=== PATIENT | female | born 1945 | race Caucasian/White ===

== ENCOUNTER → 2024-04-21 09:22 | Outpatient (REF) | payer MEDICARE, OTHER, SELFPAY | LOC: HWRAD 09:22 | PROVIDERS: ATTENDING PHYSICIAN Surgery Vascular Surgery; FAMILY PHYSICIAN Family Medicine | DX: I71.9 Aortic aneurysm of unspecified site, without rupture (principal) | CPT/HCPCS: 74176 ==

== ENCOUNTER → 2024-04-25 09:08 | Outpatient (REF) | payer MEDICARE, OTHER, SELFPAY | LOC: RAD 09:08 | PROVIDERS: ATTENDING PHYSICIAN Surgery Vascular Surgery; FAMILY PHYSICIAN Family Medicine | DX: I77.1 Stricture of artery (principal) | CPT/HCPCS: 93923; 93930 ==

== ENCOUNTER → 2024-04-29 09:30 | Outpatient (REF) | payer MEDICARE, OTHER, SELFPAY | LOC: HWRCS 09:30 | PROVIDERS: ATTENDING PHYSICIAN Internal Medicine Cardiovascular Disease; FAMILY PHYSICIAN Family Medicine | DX: I35.0 Nonrheumatic aortic (valve) stenosis (principal) | CPT/HCPCS: 93306 ==

== ENCOUNTER 2024-05-15 08:38 | Day surgery (SDC) | payer MEDICARE, OTHER, SELFPAY ==
[2024-05-06 09:17] VITALS: BMI 34.1
[2024-05-15] VITALS (10 sets, daily range): BP systolic 104–140; BP diastolic 63–76; BMI 33.5
--- NOTE | 2024-05-15 09:43 | CONSULT.STRU ---
Consultation
-
Date/Time Consultation Requested: 05/15/2024
Date/Time Consultation Performed: 05/15/2024
Requesting Provider: Nicolas Atkinson DO
Performing Provider: ROSALINO Vizcaino
Reason for Consultation: / TAVR
Patient History
Physicians
Family Physician: Rush Jacques MD
Outpatient Order Editor: Colette Lewis MD
Primary Order Editor: Colette Lewis MD
History of Present Illness
Ms. Worthington is a 78 yof that presents with severe symptomatic aortic stenosis associated with MCCLOUD, dizziness, and LE edema. Her echocardiogram from 04/29/2024 is notable for: EF 60-65% AV P/M 74/46, KAREN 0.86, Pk bob: 4.19, no AI, MAC with mild
Discussed the pathophysiology and treatment options for including SAVR and TAVR. Explained the TAVR evaluation process comprising of CT Scan, CT surgical consult, dental clearance, and a heart team discussion. TAVR booklet, prescriptions,
appointments, and contact information given to patient. Allowed for and answered questions at bedside.
Past Medical History
Past Medical History: Atrial Fib (PAF), HTN, Hypercholesterolemia, Valvular Disease (Aortic stenosis) and Other ((R) subclavian artery stenosis, chronic lower back pain, c-diff, BCC (R) arm, shingles, pneumonia, chronic bronchitis, cataracts,
vascular disease, colon polyps, UTI, migrains, OA, COVID, IBS)
Past Surgical History
Past Surgical History: Cholecystectomy, Orthopedic ((L)TKR, (R) Knee arthroscopy, (R) TKR) and Other ((R) and (L) lumpectomy, ablation , cataract removal)
Dental History
[facility] dental-Patient will make an appointment
Family History
Mother: at Age (90) and Cause of (CAD, CVA)
Father: at Age (80) and Cause of (CAD,CVA)
Family Medical History: Early CAD and CAD
Social History
Alcohol: Occasional
Drug: None
Tobacco: Former Smoker
Personal:
Living: With Spouse
Employment: Retired ([employer])
Allergies
Allergy/AdvReac Type Severity Reaction Status Date / Time
gabapentin Allergy Intermediate Swelling Verified 05/15/24 09:20
latex Allergy Mild Itching Verified 05/15/24 09:20
clam Allergy Severe Anaphylaxis Uncoded 05/15/24 09:20
Home Medications
�Medication �Instructions �Recorded �Confirmed �Type
rivaroxaban 20 mg tablet (Xarelto) 20 mg PO QPM 04/29/21 05/15/24 History
hydrochlorothiazide 25 mg tablet 25 mg PO DAILY 10/30/22 05/15/24 History
losartan 25 mg tablet 100 mg PO DAILY 10/30/22 05/15/24 History
methylcellulose (laxative) 500 mg 500 mg PO DAILY 10/30/22 05/15/24 History
tablet (Citrucel)
Probiotic Acidophilus 1 cap PO DAILY 05/15/24 05/15/24 History
acetaminophen 500 mg tablet 500 mg PO Q6H PRN pain 05/15/24 05/15/24 History
ascorbic acid (vitamin C) 500 mg 500 mg PO DAILY 05/15/24 05/15/24 History
tablet (Vitamin C)
calcium 600 mg (as carbonate)-vit 1 tab PO DAILY 05/15/24 05/15/24 History
D3 20 mcg (800 unit) chewable
tablet (Caltrate plus D)
calcium carbonate 600 mg PO DAILY 05/15/24 05/15/24 History
carboxymethylcellulose sodium 1 % 1 drp ophthalmic (eye) BID 05/15/24 05/15/24 History
eye liquid gel drops
cyanocobalamin (vitamin B-12) 1,000 mcg PO DAILY 05/15/24 05/15/24 History
1,000 mcg tablet,extended release
(Vitamin B-12 ER)
fluticasone propionate 50 2 spray intranasal DAILY 05/15/24 05/15/24 History
mcg/actuation nasal
spray,suspension
okhjugvq-gwkg-oknf 8 mg-folic 400 1 tab PO DAILY 05/15/24 05/15/24 History
mcg-K 50 mcg-lutein 300 mcg tablet
(Centrgeronimo Mahmood Women)
omega 5-luh-jgc-fish oil 1,200 mg 1 cap PO DAILY 05/15/24 05/15/24 History
(144 mg-216 mg) capsule (Fish Oil)
propranolol 10 mg tablet 10 mg PO Q6HPRN PRN afib 05/15/24 05/15/24 History
vitamin E 268 mg (400 unit) capsule 268 mg PO DAILY 05/15/24 05/15/24 History
STS%
STS %: 3.49
Review of Systems
-
History Source: Patient
General: Reports Fatigue
HEENT: Reports No Symptoms
Respiratory: Reports MCCLOUD
Cardiac: Reports Chest Pain (left anterior chest 'numbness')
Abdomen/GI: Reports No Symptoms
: Reports No Symptoms
Musculoskeletal: Reports No Symptoms
Skin: Reports No Symptoms
Neurological: Reports No Symptoms
Vascular: Reports PVD
Physical Exam
Vital Signs
Temp 97.9 F 05/15/24 08:43
Temp route: Oral 05/15/24 08:43
Pulse 84 05/15/24 08:43
Resp Rate 12 05/15/24 08:43
Blood pressure 140/76 05/15/24 08:43
Position: Lying 05/15/24 08:43
SaO2 97 05/15/24 08:43
Oxygen Mode of Delivery Room air 05/15/24 08:43
Can the patient verbally communicate their pain? Yes 05/15/24 08:43
Actual Weight 87.09 kg 05/15/24 09:30
Body Mass Index (BMI) 33.5 05/15/24 09:30
Labs
05/06/2024
HH: 13.8/40.2
plt: 268K
BUN/Cr: 18/0.8
GFR>60
Diagnostic Studies
ECHOCARDIOGRAM 04/29/2024:
CONCLUSIONS
Normal LV size and function with no regional wall motion abnormalities.
LVEF is 60-65% by visual estimation.
Asymmetric basal septal hypertrophy. Normal diastolic function.
Normal right ventricular size and function.
Severe aortic stenosis. Peak/mean gradients across the aortic valve are 74/46
mmHg.
CARDIAC CATHETERIZATION 05/15/2024:
CONCLUSIONS:
1. Right dominant circulation with a 70% lesion in the apical LAD, a 20% lesion in the mid RCA and luminal irregularities throughout the entire coronary tree.
2. Mildly elevated filling pressures (PCWP = 16 mmHg at 88.5 kg).
3. Preserved cardiac function (cardiac index = 2.45 L/min/m�).
4. Severe aortic valve stenosis by echocardiography.
5. Right subclavian artery stenosis, previously diagnosed by vascular surgery.
RECOMMENDATIONS:
1. Expectant management after cardiac catheterization via left radial approach.
2. Limited weight bearing on the left wrist for one week.
3. TAVR workup.
4. Aggressive primary prevention with modification of risk factors. The patient may benefit from high-dose, high potency statin but this is at the discretion of her primary outpatient senior operator
Procedure Type:�Isolated AVR
PERIOPERATIVE OUTCOME ESTIMATE %
Operative Mortality 3.49%
Morbidity & Mortality 7.21%
Stroke 0.718%
Renal Failure 1.79%
Reoperation 2.56%
Prolonged Ventilation 4.54%
Deep Sternal Wound Infection 0.108%
Long Hospital Stay (>14 days) 4.72%
Short Hospital Stay (<6 days)* 35.8%
Exam
General: Well Developed, Well Nourished, No Apparent Distress and Comfortable
HEENT: Normocephalic and Moist Mucous Membranes
Neck: Trachea Midline
Respiratory: Clear
Cardiac: Murmur (/ DIONE)
GI: Soft, Non Tender and Non Distended
Rectal: Deferred by Provider
Skin: Warm and Dry
Neuro: Awake, Alert, Oriented and AO x 3
Extremities: Lower Level Edema
Psych: Calm
Assessment / Plan
-
Aortic stenosis
Continue TAVR evaluation
Trend creatinine after contrast (Rx given)
TAVR CT scan (05/27)
CT surgery consult (TT 05/29)
Frailty testing and KCCQ12 at consult
Will hold xarelto x 48 before TAVR and add aspirin while xarelto held
Dental clearance
heart team discussion
Data Reviewed
-
Consumer Loan Specialist: Report Reviewed by me and Discussed with Physician
Echo: Report Reviewed by me and Discussed with Physician
Labs: Labs Reviewed by me
Old Records: Reviewed (Dr. Lewis's note)
Total Time Spent with Patient (in minutes): 45
[2024-05-15] MEDS: NSS 1000 IV (13:14)
--- NOTE | 2024-05-15 13:37 | ITS.CL.CATH ---
Patent Lawyer - Catheterization
Cardiac Catheterization
Procedure Report:
CARDIAC CATHETERIZATION REPORT
Date of Procedure: 05/15/2024
Referring: Riya Lewis M.D.
Indication: Severe aortic valve stenosis.
PROCEDURE:
1. Right heart catheterization.
2. Coronary angiography.
ACCESS:
6 Nigerien left radial artery.
5 Nigerien left antecubital vein.
CATHETERS:
1. 5 Nigerien balloon wedge.
2. 5 Nigerien JL 3.5.
3. 5 Nigerien JR4.
HEMODYNAMIC DATA
Weight (kg): 88.5
AO (s/d/x mmHg): 125/70/86
LV (s/x mmHg): Not obtained.
PCWP (a/v/x mmHg): /16
PA (s/d/x mmHg): /
RV (s/x mmHg): 26/
RA (a/v/x mmHg):
SVC SvO2 (%): 79.3
PA SvO2 (%): 75.1
SaO2 (%): 96.7
Hbg (g/dL): 12.7
CO (L/min): 4.69
CI (L/min/m2): 2.45
TPG (mmHg): 3
PVR (Chong Units): 0.64
SVR (dynes*seconds*cm^-5): 1348
AVO2 Diff (Volume %): 3.73
AV gradient (x, mmHg): Not obtained.
AV area (cm2): Not obtained.
LEFT VENTRICULOGRAPHY: Not performed.
CORONARY ANGIOGRAPHY
Dominance: Right.
Left Main: Normal size, bifurcating vessel. There is no coronary artery disease.
LAD: Normal size vessel giving rise to several small diagonals. There is a 70% lesion in the apical LAD. There are luminal irregularities in the body of the vessel.
Ramus: Congenitally absent.
Circumflex: Normal size, nondominant vessel that is essentially a single large obtuse marginal supplying the entire lateral wall. There are luminal irregularities.
RCA: Large size, dominant vessel. There are luminal irregularities and a discrete, 20% lesion in the mid RCA.
INTERVENTIONS
None.
Closure Device: Vascular band for the left radial artery, manual pressure for the left antecubital vein.
Radiation dose (mGy): 269.18
DAP (cm2.Gy): 19.7145
Fluoroscopy time (minutes): 2.3
Sedation time (minutes): 0
CONCLUSIONS:
1. Right dominant circulation with a 70% lesion in the apical LAD, a 20% lesion in the mid RCA and luminal irregularities throughout the entire coronary tree.
2. Mildly elevated filling pressures (PCWP = 16 mmHg at 88.5 kg).
3. Preserved cardiac function (cardiac index = 2.45 L/min/m�).
4. Severe aortic valve stenosis by echocardiography.
5. Right subclavian artery stenosis, previously diagnosed by vascular surgery.
RECOMMENDATIONS:
1. Expectant management after cardiac catheterization via left radial approach.
2. Limited weight bearing on the left wrist for one week.
3. TAVR workup.
4. Aggressive primary prevention with modification of risk factors. The patient may benefit from high-dose, high potency statin but this is at the discretion of her primary outpatient customer success manager.
Copy to: Riya Lewis M.D., Rush Jacques M.D.
Nicolas Atkinson, DO, FACC, FACP
== END 2024-05-15 15:10 | disposition home or self-care (01) ==
LOC: CATH 08:38
PROVIDERS: ATTENDING PHYSICIAN Internal Medicine Cardiovascular Disease; FAMILY PHYSICIAN Family Medicine; OTHER PHYSICIAN Internal Medicine Cardiovascular Disease
DX: R07.89 Other chest pain (principal); I35.0 Nonrheumatic aortic (valve) stenosis; I25.10 Atherosclerotic heart disease of native coronary artery without angina pectoris; R61 Generalized hyperhidrosis; R06.02 Shortness of breath; I48.0 Paroxysmal atrial fibrillation; R60.0 Localized edema; I10 Essential (primary) hypertension; R73.03 Prediabetes; G47.33 Obstructive sleep apnea (adult) (pediatric); R91.1 Solitary pulmonary nodule; Z85.820 Personal history of malignant melanoma of skin; M19.90 Unspecified osteoarthritis, unspecified site; G43.909 Migraine, unspecified, not intractable, without status migrainosus; M48.00 Spinal stenosis, site unspecified; Z79.01 Long term (current) use of anticoagulants; Z79.899 Other long term (current) drug therapy; E78.00 Pure hypercholesterolemia, unspecified; K58.9 Irritable bowel syndrome, unspecified; Z88.8 Allergy status to other drugs, medicaments and biological substances; Z86.0100 Personal history of colon polyps, unspecified; Z86.16 Personal history of COVID-19; Z82.49 Family history of ischemic heart disease and other diseases of the circulatory system; Z87.440 Personal history of urinary (tract) infections; Z87.891 Personal history of nicotine dependence; Z90.49 Acquired absence of other specified parts of digestive tract; Z91.040 Latex allergy status; Z96.653 Presence of artificial knee joint, bilateral
CPT/HCPCS: 93460; C1894; Q9967

== ENCOUNTER → 2024-05-30 09:29 | Outpatient (REF) | payer MEDICARE, OTHER, SELFPAY | LOC: RAD 09:29 | PROVIDERS: ATTENDING PHYSICIAN Nurse Practitioner Acute Care; FAMILY PHYSICIAN Family Medicine | DX: I35.0 Nonrheumatic aortic (valve) stenosis (principal) | CPT/HCPCS: 74174; 75572; Q9967 ==

== ENCOUNTER 2024-07-10 05:34 | Inpatient (IN) | payer MEDICARE, OTHER, SELFPAY ==
[2024-07-02 08:41] VITALS: BMI 34.5
[2024-07-02 09:36] LABS: % Basophils 0.6 % (0-2); % Eosinophils 1.7 % (0-6); % Immature Granulocytes 0.2 % (0-0.5); % Lymphocytes 25.4 % (20.5-51.1); % Monocytes 7.7 % (1.7-9.3); % Neutrophils 64.4 % (42.2-75.2); Absolute Eosinophils 0.1 10^3/uL (0-0.7); Absolute Lymphocytes 1.4 10^3/uL (1.2-3.4); Absolute Monocytes 0.4 10^3/uL (0.1-0.6); Absolute Neutrophils 3.5 10^3/uL (1.4-6.5); Hematocrit 41.4 % (37.0-47.0); Hemoglobin 14.3 g/dL (12.0-16.0); Mean Corp Hgb Conc. 34.5 g/dL (33.0-37.0); Mean Corpuscular Hgb 32.8 pg (27.0-31.0); Nucleated Red Blood Cells % 0 %; Platelet Count 253 10^3/uL (130-400); Red Blood Cell Count 4.36 10^6/uL (4.20-5.40); Red Cell Dist. Width 13.2 % (11.5-14.5); White Blood Cell Count 5.4 10^3/uL (4.8-10.8)
[2024-07-02 09:46] LABS: Urine Albumin Trace (Neg - Trace); Urine Bilirubin Negative (Negative); Urine Character Clear (Clear); Urine Color Yellow; Urine Glucose Negative (Negative); Urine Ketone Negative (Negative); Urine Leukocyte Negative (Negative); Urine Nitrite Negative (Negative); Urine Occult Blood Negative (Negative); Urine Specific Gravity 1.015 (<1.030); Urine Urobilinogen Negative (Neg - 1+)
[2024-07-02 09:56] LABS: INR 1.65; NT-proBNP 196 pg/ml
[2024-07-02 09:57] LABS: APTT 41.2 Sec (23.4-35.0)
[2024-07-02 10:20] LABS: Glycohemoglobin (HgbA1c) 5.3 % (4.0-5.6)
[2024-07-02 11:37] LABS: ALT (SGPT) 16 U/L (0-35); AST (SGOT) 20 U/L (14-36); Alkaline Phosphatase 70 U/L (38-126); Blood Urea Nitrogen 22 mg/dl (7-17); Calcium 8.6 mg/dl (8.4-10.2); Carbon Dioxide 30 mmol/L (22-30); Chloride 100 mmol/L (98-107); Direct Bilirubin 0.1 mg/dl (0.0-0.4); Estimated Creatinine Clearance 62 ml/min; Glucose 98 mg/dl (70-99); Potassium 3.6 mmol/L (3.5-5.1); Sodium 139 mmol/L (135-145); Total Bilirubin 0.6 mg/dl (0.2-1.3); Total Protein 6.4 g/dl (6.3-8.2); eGFR > 60.00
--- NOTE | 2024-07-02 12:03 | CM ---
spoke to pt and husb in PAT's, we discussed preop teaching for EVAR/TAVR, including lifting and driving restrictions, she is prev indep, is a nurse practicioner, lives with her husb in a 1 story home with 2 steps to enter. she has a cane she uses.
she has the TAVR educ book, soap and instuctions. she is agreeable to a f/u visit from the transitional care nurse after dc. plan is for EVAR/TAVR 07/10. cm role explained and all questions answered .
[2024-07-10] VITALS (17 sets, daily range): BP systolic 110–157; BP diastolic 55–99; BMI 33.3
--- NOTE | 2024-07-10 06:24 | W.CVOR.SURPR ---
CVOR Surgeon Immed Pre Op
-
I have examined this patient prior to performance of the scheduled procedure.
The patient's condition is unchanged from the time of the dictated/written History and
Physical and the patient is able to undergo the scheduled procedure.
TAVR + EVAR
Full Rescue
--- NOTE | 2024-07-10 06:30 | PTCARENOTE ---
pt admitted into 2263. pt confirmed 2 showers at home. NPO since 0000. pt clipped and prepped for EVAR/TAVR. pre-op education provided. 20 G PIV inserted. hooker on to laborer mine.
--- NOTE | 2024-07-10 07:04 | W.SUR.PREOP ---
Pre-Operative Surgical Note
-
I have examined this patient prior to the performance of the scheduled procedure.
The patient's condition is unchanged from the time of the current History and
Physical and the patient is able to undergo the scheduled procedure.
[2024-07-10 09:16] LABS: ACT-LR - POC 250 Seconds (116-155)
--- NOTE | 2024-07-10 09:20 | ITS.CL.TAVR ---
Gis Application Developer - TAVR Report
TAVR PRocedure
Procedure Report:
TRANSCATHETER AORTIC VALVE REPLACEMENT REPORT
Date of Procedure: 07/10/2024
Referring: Dr. Colette Lewis MD
Indication: Severe aortic stenosis, descending thoracic aorta saccular aneurysm
Operators: Jonathan Lam MD, PhD (interventional cardiology); Dr. Beny Todd MD (CT surgery); Dr. Pal Mendiola MD (vascular surgery)
Anesthesia: general anesthesia provided by the anesthesia staff
PROCEDURE:
1. transfemoral, transcatheter aortic valve replacement with a 23 mm Ortiz BENY S3 Ultra
2. descending thoracic aorta EVAR placement (by Vascular surgery, see separate note for details)
ACCESS:
1. 6F left femoral vein (closure: per Vascular surgery)
2. 7F left common femoral artery (closure: per Vascular surgery)
3. 14 F right common femoral artery (closure: per Vascular surgery)
ULTRASOUND GUIDED VASCULAR ACCESS (right common femoral artery): Ultrasound was utilized for vascular access. The vessel was visualized under ultrasound and noted to be patent. An image of the vessel was stored permanently in the patient's medical
record. Under direct ultrasound guidance, vascular access was obtained using a modified Seldinger technique and a 11 Taiwanese sheath was placed.
ULTRASOUND GUIDED VASCULAR ACCESS (left common femoral artery): Ultrasound was utilized for vascular access. The vessel was visualized under ultrasound and noted to be patent. An image of the vessel was stored permanently in the patient's medical
record. Under direct ultrasound guidance, vascular access was obtained using a modified Seldinger technique and a 7 Taiwanese sheath was placed.
ULTRASOUND GUIDED VASCULAR ACCESS (right common femoral vein): Ultrasound was utilized for vascular access. The vessel was visualized under ultrasound and noted to be patent. An image of the vessel was stored permanently in the patient's medical
record. Under direct ultrasound guidance, vascular access was obtained using a modified Seldinger technique and a 6 Taiwanese sheath was placed.
HEMODYNAMIC DATA
LV 24 mmHg
PROCEDURE NARRATIVE:
The procedure was performed in conjunction with vascular surgery (Dr. Pal Mendiola) with plan to complete a descending thoracic aorta EVAR using the existing TAVR access following the completion of the TAVR procedure.
The patient was prepped and draped in standard sterile fashion. General anesthesia was provided by the anesthesia staff. Vascular surgery obtained 7F left common femoral artery and 11F right common femoral artery access with placement of 2 Perclose
sutures. The procedure was then turned over to the TAVR team. 6F left common femoral vein access was obtained with ultrasound guidance. A temporary venous pacing wire was advanced via the left femoral vein to the right ventricle under fluoroscopic
guidance with appropriate capture verified. A 5F pigtail catheter was advanced via the left common femoral artery and seated in the right coronary cusp. Angiography was performed to verify the co-planar angle.
Using an AL1 catheter, an Amplatz Superstiff wire was placed in the descending thoracic aorta. The 11F sheath was removed and the 14F Ortiz E-sheath was inserted over the Superstiff wire and into the descending aorta. Heparin 6000 units was given.
The AL1 catheter was re-advanced through the E-sheath to the level of the ascending aorta. The Superstiff wire was exchanged for a soft tipped straight wire which was used to cross the aortic valve and deposit the AL1 in the LV apex. A J-wire was
used to exchange the AL1 for a pigtail catheter in the LV and LVEDP was measured. An Amplatz Extrastiff wire with curved proximal end was advanced through the pigtail catheter and seated in the LV apex. ACT was checked and confirmed to be >250
seconds.
The valve was brought to the table with orientation and deployment contrast volume verified. The valve was advanced over the Extrastiff wire and into the descending aorta. The balloon was withdrawn, and the valve was mounted on the balloon. The
valve was advanced over the aortic arch and into the aortic valve annulus. The pusher device was withdrawn. Low volume aortography confirmed valve positioning. The valve was deployed during rapid ventricular pacing. The balloon was walked back to
the descending aorta while leaving the wire in place. The patient was resuscitated by anesthesia with recovery of adequate blood pressure. Telemetry demonstrating sinus rhythm with new bundle branch block. Aortography demonstrated good valve
positioning, adequate coronary filling, and no aortic valve insufficiency. Echocardiography demonstrated possible trace paravalvular aortic insufficiency. Mean valve gradient was 4 mmHg. The valve deployment system was removed.
The pacemaker and the pigtail catheter were removed. The case was then turned back over to vascular surgery (Dr. Mendiola) who proceeded with descending thoracic aorta EVAR placement that was completed without complication. Please see separate vascular
surgery operative note for details.
RADIATION: dose to 46 mGy; DAP 37 Gy*cm2; fluoroscopy time 8.7 min
CONCLUSIONS
1. successful placement of a 23 mm Ortiz BENY S3 Ultra transcatheter aortic valve via right transfemoral approach with no acute complications
2. acute on chronic heart failure with elevated filling pressures (LVEDP = 24)
3. successful placement of descending thoracic arota EVAR (see Vascular Surgery note for further details)
Copy to: Dr. Colette Lewis MD (religion teacher); Dr. Rush Jacques MD (PCP)
Signed: Jonathan Lam MD, PhD
--- NOTE | 2024-07-10 09:21 | W.PN.CT.SURG ---
CT Surgery Operative Note
-
OPERATIVE REPORT
Preoperative Diagnosis: Severe aortic valve stenosis, symptomatic and a saccular abdominal aortic aneurysm with morphological changes
Postoperative Diagnosis: Same
Procedure(s) Performed: Right trans femoral TAVR with a 23 mm, nominal, Ortiz TAVR valve
Date of Procedure: 07/10/2024
Comorbidities:
1. Severe aortic stenosis, symptomatic
2. Saccular abdominal aortic aneurysm
3. History of C. difficile colitis
4. Hypertension
5. History of melanoma and BCC of the skin
6. Shingles
7. Peripheral vascular disease
8. Osteoarthritis
9. Irritable bowel syndrome
Cardiac Surgeon: Beny Todd MD, MS
Dragline Operator: Flash Lam MD
Vascular Surgeon: Pal Mendiola MD
Anesthesia: Conscious Sedation and Local Analgesia
EBL: 100cc
Products: none
Implant: 23 mm ORTIZ Robinson TAVR Valve, SN: [id number]
Indication(s) for Procedures: 78-year-old female with symptomatic severe aortic stenosis. CT-TAVR protocol revealed acceptable anatomy for TAVR access and implantation. As there were changes with evidence of growth of her saccular aneurysm on her
TAVR CT scan, multidisciplinary team discussion with vascular surgery who came to the consensus of moving forward with her TAVR procedure as well as placement of an EVAR graft at time of her TAVR implant. This be done under the same anesthesia
event and same access.
Start time: 0825hrs
Deployment time: 0907hrs
End time: ongoing for EVAR
Contrast volume (ml): 48 for the TAVR portion of the procedure
TAVR gradient (mmHg): 4mmHg
Heparin Dose: 6000units
Protamine Dose: 0
Final Valve Positionin/10
Findings: Preoperative LVEF was 60% and was 60% following TAVR without inotropic support. Function was overall normal without regional wall motion abnormalities or dyskinesia. The aortic valve was well seated only trace detectable PVL on
transesophageal echocardiography and mean gradient across the new valve was 4 mmHg. after deployment of the valve, the patient did progress into a bundle branch block but was hemodynamically stable, so the temporary pacing wire was removed. There
was successful placement of 23 mm, nominal, TAVR valve without acute complications. Please see Dr. Mendiola's dictation for the EVAR portion of the procedure.
Access:
1. Device -right common femoral artery, perclose x 2
2. Pigtail -left common femoral artery
3. Transvenous Pacer -left common femoral vein
Description of Procedure: The patient was taken to the pathology lab technician. Their identity and procedure to be performed were verified and they were positioned supine on the pathology lab technician table. Induction via general anesthesia with endotracheal intubation. The
patient was then prepped and draped from chin to thigh in a sterile fashion. A preoperative time-out was performed. Arterial and venous access was obtained by Dr. Mendiola. Two perclose devices were used on the device side followed by access to the aorta
with a stiff wire to faciltate E-sheath placement. Heparin was given. A stiff straight wire and AL-1 catheter was used to cross the aortic valve. LVEDP was then measured here and found to be 24 mmHg pre-TAVR deployment. The stiff wire was
exchanged for an extra stiff coiled tip wire. The valve was prepped and mounted on to the device carrier. An ACT of >250 was achieved. We verified x 3 that the valve was mounted in the correct orientation with the skirt of the valve directed toward
the tip of the device carrier. We advanced the device into the descending thoracic aorta where the valve was them mounted onto the balloon under fluoroscopy. The device was flexed and advanced over the arch into the root and positioned across the
aortic valve. Contrast fluoroscopy was used to visualize the prosthesis across the valve and to guide positioning. A pigtail catheter in the RCC as used as a guide. We aimed to have the bottom of the device marker at the annular hinge point. The
device sheath was pulled back. We performed a quick pre-deployment time out. The pacer was turned on and had capture. Blood pressure fell accordingly and the valve was deployed with 5 seconds of rapid pacing to nominal volume. The balloon was
deflated and the pacer was turned off. We had recovery of vitals. The device carrier was unflexed and positioned back in the descending thoracic aorta. A transesophageal echocardiogram was performed. The pigtail was then removed as well as the
temporary pacing wire. At this point, the structural heart team vacated and we turned over the procedure to vascular surgery. Please see their dictation for the remainder of the procedure.
I, Dr. Beny Todd, was present, scrubbed for, and performed all critical elements of this procedure for the TAVR portion.
Beny Todd MD
Cardiothoracic Surgeon
[facility]
This operative dictation was created using the [employer] dictation system. Please excuse any grammatical, typographical, or 'sound alike' errors
--- NOTE | 2024-07-10 10:29 | W.SUR.POST ---
Surgical Immediate Post Op
Note
Pre Op Diagnosis: AAA
Post Op Diagnosis: Same
Procedure Performed: Bilateral groin cutdown, EVAR
Primary Surgeon: Maury
Assist: Thomas JERRY
Anesthesia: General
Estimated Blood Loss: 10 cc
Fluids: See anesthesia flowsheet
Drains/Shunts: None
Specimens/Cultures: None
Doppler/Duplex/Angio (Y/N): Y
Complications: None
Operative Findings: See separately dictated notes for TAVR
--- NOTE | 2024-07-10 10:31 | OR.RPT ---
Operative Report
Operative Report
PROCEDURE DATE: 07/10/2024
Preoperative diagnosis: Enlarging saccular abdominal aortic aneurysm, prior thrombosis now with active perfusion into sac.
Postoperative diagnosis: Same
Procedure:
1. Endovascular repair of abdominal aortic aneurysm with aortobiiliac endograft (Endologix AFX-2 [id number]/I16-30 bifurcated device).
2. Percutaneous right common femoral artery closure with preclose technique.
3. Pro-glide percutaneous suture closure left common femoral artery puncture site.
4. Supervision and interpretation.
Surgeon: Maury
Supervisor [employer]: JORGE Guzman, required for all aspects of procedure including assistance with contralateral wire snare, traction/countertraction, assistance with closure.
Complications: None
Anesthesia: General
Fluoroscopy:
Time 10.8 minutes
Dose 16.7 mGy
DAP 72.03
Indications for procedure:
Abdominal aortic aneurysm with saccular morphology. Prior the saccular outpouching (likely plaque rupture related) had been thrombosed. On recent scan imaging it had now slightly enlarged but more concerning was newly perfused/pressurized. Raise
concern for eventual enlargement and rupture risk. Patient also had aortic valvular disease. Extensive discussions were undertaken, and we had settled on concomitant TAVR and endovascular aneurysm repair (EVAR) and single setting as the safest
mode of treatment for the patient. Risk/benefits/alternatives of endovascular aneurysm repair were fully discussed. Patient understood and wished to proceed.
Description of procedure:
Patient was identified brought to the operating room placed on the table in supine position. After the adequate administration of anesthesia and perioperative antibiotics she was prepped and draped in the standard surgical fashion. A standard
preoperative timeout was undertaken and everybody was in agreement the plan. Bilateral common femoral artery access was obtained under direct duplex ultrasound guidance. 6 Armenian sheath was placed over 0.035 inch wire in the right groin. In the
left groin, 7 Armenian sheath was placed. A small 1 cm incision was made around the right sided sheath access, and blunt dissection was undertaken with hemostats to facilitate percutaneous suture delivery. Next, using the ProGlide suture system,
percutaneous sutures were deployed at the 10:00 and 2 o'clock position on the right side in the standard fashion. Suture strands were tagged outside the skin. I exchanged for a short 11 Armenian sheath in that right groin access over the wire.
I now turned the case over to the TAVR team and they performed their portion of the procedure (see separately dictated operative notes).
When they were completed, I returned to the operating room. At this point there was the large TAVR sheath in the right groin which was a 14 Armenian sheath upsized to an 18 (sheath dilates). I now exchanged to the Amplatz wire (Amplatz extra-stiff)
for a Lunderquist wire that was positioned in the descending thoracic aorta. I now walked off the TAVR sheath and exchanged for the Endologix AFX sheath.
I now loaded the [id number] bifurcated Endologix AFX graft ([id number])] onto the stiff wire (right sided access) and then advance the affixed contralateral wire through the AFX introducer sheath. The contralateral wire was snared through
the left sided access and brought out through the contralateral left side. Initially had slight difficulty standing the wire, but then was able to successfully do so. The AFX 2 bifurcated device was transferred into the AFX introducer sheath and
advanced under fluoroscopy until the distal limbs were above the aortic bifurcation thereby releasing the limbs of the graft. Confirmation was again performed noting evidence of mild wire wrap. This was easily corrected. Next, with concomitant
downward tension on the left sided through and through wire and the right sided main body, the bifurcated graft was seated on the aortic bifurcation. Once confirmed that the graft was seated on the bifurcation, I then pulled the rip cord to deploy
the main body of the endograft. The yellow covering was then pulled over the left wire (contralateral wire) thereby deploying the contralateral iliac limb. Once this was done, a pigtail catheter was advanced over the left sided contralateral wire
access and forward pressure was applied while pulling the wire back to release the wire lock. The pigtail catheter was then advanced into the juxtarenal aorta.
Next the ipsilateral iliac limb deployment was completed by pinning the inner core and retracting the introducer sheath. Now, the inner core delivery device was withdrawn from the sheath. Coda balloon was then inserted and proximal seal zone and
right iliac limb seal were balloon molded. Completion angiography now demonstrated excellent positioning of the endograft with good filling of both renal arteries (endograft had been positioned and sized such that there was a long infrarenal neck
given that this was a saccular morphology of the aneurysm), good apposition of the proximal and distal seals, good filling of both internal and external iliac arteries. No filling of the aneurysm sac was noted. No endoleak was noted. On delayed
imaging, the JENNY could be seen to fill, but no retrograde filling into the aneurysm sac was noted. At this point I was very satisfied.
Next, I removed the right sided 17 Armenian sheath while cinching down the percutaneous sutures. Once hemostasis was noted the wire was then withdrawn, the knot was tightened with a knot pusher. Hemostasis was fully noted. The knot was then locked
and the suture strands trimmed. Manual pressure was also applied, and then full hemostasis was noted. On the left side, I exchanged the 7 Armenian sheath over a Storq wire for a Pro-glide percutaneous suture delivery device. Pro-glide percutaneous
suture was not was then cinched down to the artery. Knot was pushed down with a knot pusher. The knot was locked. Hemostasis was fully achieved bilateral groins with good femoral and distal DP pulses bilaterally. Protamine was given to reverse
the heparin. The small right groin skin incisions was then closed with 4-0 Monocryl subcuticular stitch and Dermabond was applied. Dressing applied to left groin puncture site. In addition, the left common femoral venous sheath placed by the
cardiology team was removed and manual pressure applied to that site and hemostasis fully achieved. Dressings were applied to that side as well. Patient tolerated procedure well.
[2024-07-10] MEDS: ANCEF 10 IV ×2 (10:50)
[2024-07-10] MEDS: THERAGRAN PO (10:51)
--- NOTE | 2024-07-10 11:05 | PTCARENOTE ---
Received pt from the [facility] into 2263, sinus rhythm on tele w HR 70's, Left radial vivian leveled and zeroed. BP 152/57, + doppler pulses, trace edema. Pt is oriented x3, PIMENTEL to commands. Lungs diminished, pox 99% on 4L NC. Hypoactive BS, NPO maintained
for 4 hrs post procedure. Xiao catheter draining yellow. Right groin w surgical glue intact, left groin w dressing C/D/I. PIV flush easily. Pt denies CP, JURADO or SOB. Plan of care reviewed and questions encouraged.
DRIPS: Cardene 5mg/hr
--- NOTE | 2024-07-10 11:22 | CON.INTV ---
Consultation
Consultation Request
Date/Time Consultation Requested: 07/10
Date/Time Consultation Performed: 07/10
Reason for Consultation: Critical care
Medical History
-
History of Present Illness:
History obtained from patient but primarily obtained from medical records. Patient waking up from anesthesia. Presently she is comfortable without complaints of shortness of breath, nausea, abdominal pain. 78-year-old female with progressive
aortic valve stenosis with recent echocardiogram peak gradient 70, valve area of 0.7 cm�. Catheterization revealed 70% lesion, normal cardiac index, normal right sided pressures. Preprocedure scanning also revealed saccular abdominal aortic
aneurysm which is being followed by vascular surgery. Patient is now status post TAVR/EVAR
.
PMH: Hypertension, hyperlipidemia, history of atrial fibrillation, history of C. difficile colitis, skin cancer including basal cell, melanoma. History of colon polyps, nephrolithiasis, IBS. History of sleep apnea, left upper lobe nodule.
History of subclavian stenosis. History of COVID 2021. History of cholecystectomy, multiple skin cancer removals including melanoma of the right [place], left knee replacement 2018, bilateral lumpectomy breast, history of ablation
Past Medical History
Past Medical History: None (See above)
Past Surgical History: None (See above)
Social History
Tobacco: Former Smoker (Less than 10 pack years, quit )
Alcohol: Occasional
Drug: None
Personal:
Living: With Family
Employment: Not Employed
Family History
Family History: Other (Family history of cortices, stroke. History of brain aneurysm, breast cancer)
Allergies / Home Medications
Allergies
Allergy/AdvReac Type Severity Reaction Status Date / Time
gabapentin Allergy Intermediate Swelling Verified 07/01/24 08:28
latex Allergy Mild Itching Verified 07/01/24 08:28
clam Allergy Severe Anaphylaxis Uncoded 07/01/24 08:28
Home Medications
�Medication �Instructions �Recorded �Confirmed �Last Taken �Type
rivaroxaban 20 mg tablet (Xarelto) 20 mg PO QPM 04/29/21 07/10/24 07/07/24 History
hydrochlorothiazide 25 mg tablet 25 mg PO DAILY 10/30/22 07/10/24 07/09/24 History
methylcellulose (laxative) 500 mg 500 mg PO DAILY 10/30/22 07/10/24 07/09/24 History
tablet (Citrucel)
Probiotic Acidophilus 1 cap PO DAILY 05/15/24 07/10/24 07/09/24 History
acetaminophen 500 mg tablet 500 mg PO Q6H PRN pain 05/15/24 07/10/24 06/26/24 History
ascorbic acid (vitamin C) 500 mg 500 mg PO DAILY 05/15/24 07/10/24 07/09/24 History
tablet (Vitamin C)
calcium 600 mg (as carbonate)-vit 1 tab PO DAILY 05/15/24 07/10/24 07/09/24 History
D3 20 mcg (800 unit) chewable
tablet (Caltrate plus D)
calcium carbonate 600 mg PO PRN PRN Indigestion 05/15/24 07/10/24 06/26/24 History
carboxymethylcellulose sodium 1 % 1 drp ophthalmic (eye) BID 05/15/24 07/10/24 07/09/24 History
eye liquid gel drops
cyanocobalamin (vitamin B-12) 1,000 mcg PO DAILY 05/15/24 07/10/24 07/09/24 History
1,000 mcg tablet,extended release
(Vitamin B-12 ER)
fluticasone propionate 50 2 spray intranasal DAILY 05/15/24 07/10/24 07/09/24 History
mcg/actuation nasal
spray,suspension
tqmqssyn-bpim-wbhr 8 mg-folic 400 1 tab PO DAILY 05/15/24 07/10/24 07/09/24 History
mcg-K 50 mcg-lutein 300 mcg tablet
(Centrum Silver Women)
omega 0-vkz-olb-fish oil 1,200 mg 1 cap PO DAILY 05/15/24 07/10/24 06/30/24 History
(144 mg-216 mg) capsule (Fish Oil)
propranolol 10 mg tablet 10 mg PO Q6HPRN PRN afib 05/15/24 07/10/24 07/03/24 History
vitamin E 268 mg (400 unit) capsule 268 mg PO DAILY 05/15/24 07/10/24 06/30/24 History
losartan 100 mg tablet 100 mg PO DAILY 07/01/24 07/10/24 07/09/24 History
aspirin 81 mg chewable tablet 81 mg PO DAILY 07/10/24 07/10/24 07/10/24 History
Review of Systems
-
Unable to Obtain full review of systems at this time due to: Acuity
Vitals / Labs / Diagnostic Testing
Vital Signs
Temp Pulse Resp BP Pulse Ox
95.1 F L 72 14 118/55 98
07/10/24 11:07/10/24 11:07/10/24 11:00 07/10/24 11:07/10/24 11:00
Diagnostic Testing:
Physical Exam
-
HEENT: Normocephalic, Anicteric and Other
Cardiovascular: S1/S2, Regular Rhythm, Murmur (n), Rub (n) and Peripheral Edema (n)
Respiratory: Wheeze (n), Rales (n), Rhonchi (n) and Non-Labored Respirations
GI: Soft, Non Distended and Non Tender
Neurology: Awake, Alert and No Motor Deficits (Moves all extremities)
Skin: Good Color
General: Comfortable
Assessment
-
78-year-old female with history of progressive aortic stenosis, status post TAVR/EVAR 07/10/24
S/p TAVR, repair of abdominal aortic aneurysm with aortobiiliac endograft
Hypokalemia
Hyperglycemia
Conditions present prior to admission
History of C. difficile colitis
Left upper lobe nodule, 8 mm, stable from -
Hypertension/hyperlipidemia
Paroxysmal atrial fibrillation
History of coronary disease, per [facility] 05/15/2024
70% apical LAD, 20% mid RCA
RT Subclavian arterial stenosis
BLADIMIR, total index 18.5, desaturation marianna 86%
History of multiple skin cancers including melanoma
History of nephrolithiasis
Plan/recommendations
At this time, patient remain critical but stable
Patient is without complaints at this time
98% saturation, pulse 86, blood pressure 120s/60s
Moving forward
Continue management per CT surgery and vascular surgery.
Resume oral antihypertensive therapy
Patient on Xarelto, to be started 07/11
Monitor blood pressure, nicardipine as needed
Blood pressure monitoring from left arm given right subclavian stenosis
Pain control
Patient with history of moderate sleep apnea
Head of bed elevated
Will clarify CPAP treatment as outpatient if follows up
Left upper lobe nodule noted. It appears to be spiculated but has not changed significantly from 20 22-20 24, measured 8 mm
However there is a groundglass component therefore I would recommend continued follow-up imaging, consider repeat CT chest in 6 to 12 months
Reviewed with critical care nursing
TCCT 31 min
--- NOTE | 2024-07-10 12:04 | CM ---
Chart reviewed. Patient is in the OR today. Patient is a retired [employer]. Patient is independent of ADLS, lives with her in a [address], 2 [address], ambulates with a SPC. Plan is for the patient to return home with CT Transitional RN. CM to follow
[2024-07-10 12:13] LABS: Hematocrit 37.3 % (37.0-47.0); Mean Corp Hgb Conc. 34.9 g/dL (33.0-37.0); Mean Corpuscular Hgb 32.7 pg (27.0-31.0); Mean Corpuscular Volume 93.7 fL (81.0-99.0); Mean Platelet Volume 8.9 fL (7.4-10.4); Platelet Count 223 10^3/uL (130-400); Red Blood Cell Count 3.98 10^6/uL (4.20-5.40); Red Cell Dist. Width 13.1 % (11.5-14.5); White Blood Cell Count 8.4 10^3/uL (4.8-10.8)
[2024-07-10] MEDS: NSS 1000 IV (12:19)
[2024-07-10 12:23] LABS: PT 14.7 Sec (11.4-14.6)
[2024-07-10 12:24] LABS: APTT 33.5 Sec (23.4-35.0)
[2024-07-10 12:52] LABS: Blood Urea Nitrogen 13 mg/dl (7-17); Calcium 7.7 mg/dl (8.4-10.2); Carbon Dioxide 27 mmol/L (22-30); Chloride 104 mmol/L (98-107); Estimated Creatinine Clearance 84 ml/min; Glucose 134 mg/dl (70-99); Potassium 3.3 mmol/L (3.5-5.1); Sodium 139 mmol/L (135-145); eGFR > 60.00
[2024-07-10] MEDS: KCL 40 MEQ PO (13:39)
[2024-07-10 14:23] LABS: ACT-LR - POC > 397 Seconds (116-155)
--- NOTE | 2024-07-10 15:00 | PTCARENOTE ---
Pt received from previous RN; NSR on monitor and vSS; B/L groin dressing intact; family at bedside and assessment unchanged.
[2024-07-10] MEDS: ANCEF 5 IV (16:35)
[2024-07-10] MEDS: REFRESH CELLUVISC GEL BOTH EYES (20:23)
[2024-07-10] MEDS: BENADRYL 25 MG PO (20:24)
--- NOTE | 2024-07-10 22:35 | PTCARENOTE ---
Received patient at 1900. Patient in bed, at bedside, AOx3, no acute complaints of pain. NSR on the monitor, hear tones audible, trace lower extremity edema, + pulses. Lungs diminished at the bases, on 4LNC. Tolerated dinner, no n/v, +BS.
Xiao catheter in place draining clear yellow urine. B/L groin sites intact, skin otherwise CDI, see worklist. PIVx3 and L vivian in place. Lines leveled and zeroed. Call kwan within reach, patient and spouse updated on plan of care, in agreement.
Assessment of needs ongoing.
[2024-07-11] VITALS (12 sets, daily range): BP systolic 129–142; BP diastolic 60–75; PULSE 90; O2SAT 98–99; BMI 33.7
--- NOTE | 2024-07-11 00:11 | PTCARENOTE ---
Notified provider the patient had 15 mL OUP between 2200 and 2300. Patient on maintenance IVF, advised to continue to monitor. Patient sleeping between care, no acute issues, groin sites stable, neurologically intact.
--- NOTE | 2024-07-11 04:00 | PTCARENOTE ---
No changes in assessment, VSS, patient sleeping between care.
--- NOTE | 2024-07-11 04:29 | W.PN.CT ---
Today's Communication / Plan
-
-POD#1
-no issues overnight
-Echo today
-review EKG with cardiology
-start Xarelto along with prior home meds
-discharge planning
Assessment / Plan
-
s/p Right trans femoral TAVR with a 23 mm, nominal, Ortiz TAVR valve by Dr. Todd and Bilateral groin cutdown, EVAR with aortobiiliac endograft (Endologix AFX-2 [id number]/I16-30 bifurcated device) by Dr. Mendiola POD#1.
-Severe aortic stenosis, symptomatic
-Saccular abdominal aortic aneurysm
-History of C. difficile colitis
-Hypertension
-History of melanoma and BCC of the skin
-Shingles
-Peripheral vascular disease
-Osteoarthritis
-Irritable bowel syndrome
Subjective
Procedure
-Right trans femoral TAVR with a 23 mm, nominal, Ortiz TAVR valve on 07/10/[address] Todd
-Bilateral groin cutdown, EVAR with aortobiiliac endograft (Endologix AFX-2 [id number]/I16-30 bifurcated device) on 07/10/[address] Mendiola
-
Date of Service: July 11, 2024
Objective Data
-
Lab Results
07/11/24 04:20
07/11/24 04:20
PT 14.6 Sec (11.4-14.6) 07/11/24 04:20
INR 1.08 07/11/24 04:20
APTT 32.3 Sec (23.4-35.0) 07/11/24 04:20
Vital Signs
Vital Signs
Temp Pulse Resp BP Pulse Ox
98.4 F 77 12 135/61 98
07/11/24 04:00 07/11/24 04:00 07/11/24 04:00 07/11/24 04:00 07/11/24 04:00
CT Intake/Output/Weight
07/10/24 07/10/24 07/11/24
06:59 18:59 06:59
Intake Total 247.5 / 1627.5 1380 / 1627.5
Output Total 3100 / 3550 450 / 3550
Balance -2852.5 / -1922.5 930 / -1922.5
SaO2: 98
Physical Exam
-
General: AOx3
Cardiovascular: Regular rate & rhythm
Respiratory: Clear
Incision: Other (groins dressed/dry without hematoma)
[2024-07-11 04:49] LABS: Hematocrit 32.6 % (37.0-47.0); Hemoglobin 11.1 g/dL (12.0-16.0); Mean Corpuscular Hgb 32.5 pg (27.0-31.0); Mean Corpuscular Volume 95.3 fL (81.0-99.0); Mean Platelet Volume 9.1 fL (7.4-10.4); Platelet Count 215 10^3/uL (130-400); Red Blood Cell Count 3.42 10^6/uL (4.20-5.40); Red Cell Dist. Width 13.2 % (11.5-14.5); White Blood Cell Count 11.9 10^3/uL (4.8-10.8)
[2024-07-11 04:56] LABS: INR 1.08; PT 14.6 Sec (11.4-14.6)
[2024-07-11 04:57] LABS: APTT 32.3 Sec (23.4-35.0)
[2024-07-11 05:14] LABS: Blood Urea Nitrogen 11 mg/dl (7-17); Calcium 7.9 mg/dl (8.4-10.2); Carbon Dioxide 25 mmol/L (22-30); Chloride 108 mmol/L (98-107); Estimated Creatinine Clearance 84 ml/min; Glucose 118 mg/dl (70-99); Potassium 3.7 mmol/L (3.5-5.1); Sodium 139 mmol/L (135-145); eGFR > 60.00
[2024-07-11] MEDS: KCL 40 MEQ PO (05:58)
--- NOTE | 2024-07-11 06:45 | PTCARENOTE ---
Patient delined, OOB to chair, no issues.
--- NOTE | 2024-07-11 07:45 | PTCARENOTE ---
Received pt from night court magistrate RN; pt AAOx3 and resting comfortably in chair; NSR on monitor and VSS; Lungs diminished; positive bowel sounds; pt voiding yellow urine; palpable pulses throughout; no edema noted; all surgical sites C/D/I; see flow
sheet for details.
--- NOTE | 2024-07-11 07:46 | W.PN.VS ---
Addendum entered and electronically signed by Pal Mendiola MD 07/11/24 08:26:
Seen and examined with JORGE Guzman. Agree with findings as noted below. Patient without significant complaints. Sitting up eating when we saw her without any discomfort. Abdomen is soft, nondistended, nontender. Groins are both flat. Small right
groin incision clean dry and intact. No hematoma. Left groin puncture site flat. No hematoma. Feet are warm with palpable DP pulses bilaterally. Labs reviewed. Plan/as discussed and noted below.
Original Note:
Today's Communication / Plan
-
Patient seen and evaluated bedside with Dr. Pal Mendiola, below plan reviewed with attending.
Assessment/Plan
-
Assessment: 78-year-old female POD #1 TAVR/EVAR
Plan:
Discontinue Xiao catheter
Continue to progress ambulation as tolerated
Continue aspirin 81 mg p.o. daily, okay from a vascular surgical perspective to reinitiate anticoagulation for atrial fibrillation
Outpatient follow-up placed in discharge instructions
From a vascular surgical perspective okay for discharge today pending spontaneous void following Xiao catheter removal and continued toleration of ambulation
Subjective Data
-
Date of Service: July 11, 2024
Patient seen and examined at chair side, offers no complaints, tolerating p.o. diet and currently eating breakfast. Reports very minimal pain at bilateral puncture sites. Denies nausea, vomiting, fever, and chills.
Objective Data
-
Vital Signs
Temp Pulse Resp BP Pulse Ox
98.4 F 73 18 142/70 98
07/11/24 06:00 07/11/24 06:29 07/11/24 06:29 07/11/24 06:29 07/11/24 06:29
Intake and Output
07/10/24 07/11/24 07/12/24
06:59 06:59 06:59
Intake Total 1847.5 / 1847.5
Output Total 3785 / 3785
Balance -1937.5 / -1937.5
Intake:
Oral fluids 600 / 600
IV fluids (Total) 1247.5 / 1247.5
Cardene 17.5 / 17.5
KVO 170 / 170
NSS 1060 / 1060
Output:
Urine, Xiao 378 / 3785
Lab Results
07/11/24 04:20
07/11/24 04:20
Calcium 7.9 mg/dl (8.4-10.2) L 07/11/24 04:20
Total Bilirubin 0.6 mg/dl (0.2-1.3) 07/02/24 08:53
Direct Bilirubin 0.1 mg/dl (0.0-0.4) 07/02/24 08:53
AST 20 U/L (14-36) 07/02/24 08:53
ALT 16 U/L (0-35) 07/02/24 08:53
Alkaline Phosphatase 70 U/L (38-126) 07/02/24 08:53
Total Protein 6.4 g/dl (6.3-8.2) 07/02/24 08:53
Albumin 4.0 g/dl (3.5-5.0) 07/02/24 08:53
Physical Exam
-
No apparent distress, resting in chair comfortably
No tachycardia
No dyspnea on room air
ABD rotund, nondistended, nontender
Bilateral groin puncture sites clean, dry, and intact. No evidence of hematoma.
Bilateral feet warm, bilateral DP pulse +2 palpable
Xiao draining clear yellow urine
[2024-07-11] MEDS: VITAMIN C 500 MG PO (07:49)
[2024-07-11] MEDS: REFRESH CELLUVISC GEL 1 DROPS BOTH EYES (07:49)
[2024-07-11] MEDS: VISBIOME 1 CAP PO (07:49)
[2024-07-11] MEDS: ORETIC 25 MG PO (07:49)
[2024-07-11] MEDS: COZAAR 100 MG PO (07:49)
[2024-07-11] MEDS: THERAGRAN 1 TABLET PO (07:49)
[2024-07-11] MEDS: OSCAL 500 + D 500 MG PO (07:49)
[2024-07-11] MEDS: LOW STRENGTH ASPIRIN 81 MG PO (08:49)
[2024-07-11] MEDS: LASIX 40 MG IV (08:49)
--- NOTE | 2024-07-11 09:11 | W.DCSUMMARY ---
Discharge Summary
Discharge Data
Date of Admission: 07/10/24
Date of Discharge: 07/11/24
Total time spent discharging patient (in min): 40
-
Pending Results: No
Hospital Course
Primary care physician:
Dr. Jacques
Outpatient photonics engineer:
Dr. Lewis
Inpatient consultants:
Vascular, [facility] cardiology, and hand box coverer
Procedures:
1. Right trans femoral TAVR with a 23 mm, nominal, Ortiz TAVR valve
2. Endovascular repair of abdominal aortic aneurysm with aortobiiliac endograft (Endologix AFX-2 [id number] bifurcated device).
Primary Diagnosis:
1. Severe aortic valve stenosis
Secondary Diagnoses:
1. Enlarging saccular abdominal aortic aneurysm, prior thrombosis now with active perfusion into sac.
2. History of C. difficile colitis
3. transient bundle branch block (resolved)
4. Hypertension
5. History of melanoma and BCC of the skin
6. Shingles
7. Peripheral vascular disease
8. Osteoarthritis
9. Irritable bowel syndrome
HPI: 78-year-old female with symptomatic severe aortic stenosis. CT-TAVR protocol revealed acceptable anatomy for TAVR access and implantation. As there were changes with evidence of growth of her saccular aneurysm on her TAVR CT scan,
multidisciplinary team discussion with vascular surgery who came to the consensus of moving forward with her TAVR procedure as well as placement of an EVAR graft at time of her TAVR implant. Therefore, she presented on 07/10 for her planned
procedure.
Hospital course: Patient did well post-procedure and returned to the CVICU for the remainder of her recovery. She was started on IVF per vascular and had excellent UOP and arterial line was DC. On 07/11 POD #1, her william was removed. She was resumed
on ASA 81mg daily per vascular. B/L groins remained stable. TTE showed P/M gradients were 19/12mmHg and LVEF was >75%. She was deemed stable for discharge and to resume her xarelto tonight.
Home medication changes:
see below
Discharge Plan
-
Patient Disposition: Home (Routine Discharge)
Discharge Diagnosis/Procedures: TF-TAVR/EVAR
Condition: Good
Diet: Low Cholesterol and 2 Gram Sodium
Activity: As tolerated
Driving Restrictions: No driving for 1 week
Bathing Restrictions: OK to Shower
Others Tests: 30 Day Follow Up Echocardiogram: 08/11/2024 11:20am at [facility]
Other Services: Cardiac Rehab
Wound Care: Please do not apply lotions, creams or powders to groin areas. Monitor for increased pain, swelling, drainage or redness. Call your doctor if any occur.
Specialty Instructions: Weigh Daily- Call MD for wt gain/loss 3 lbs overnight/5 lbs in 1 week
Stand Alone Forms: DC Inst - TransFemoral (TAVR), DC Instr - Vascular OR
Referrals:
CT Transitional Care Nurse [Outside] (The Cardiothoracic Transitional Care Nurse will call you to set up a visit in 1-2 days.)
[facility]. Cardiac Rehab [Outside] - 08/06/24 1:00 pm
(Cardiac Rehab Orientation appointment is on 08/06/24 at 1:00 pm
The Cardiac Rehab gym is located on the first floor of the [facility].)
Rush Jacques MD [Family Provider] -
Kristy Moncada CRNP [Specified Professional Personl] - 08/07/24 2:20 pm
Anu Lilly PA-C [Specified Professional Personl] - 07/24/24 9:30 am
Prescriptions:
Continued
hydrochlorothiazide 25 mg Tablet
25 mg PO DAILY
propranolol 10 mg Tablet
10 mg PO Q6HPRN PRN (Reason: afib)
vitamin E 268 mg (400 unit) Capsule
268 mg PO DAILY
omega [id number]-fish oil [Fish Oil] 1,200 (144-216) mg Capsule
1 cap PO DAILY
acetaminophen 500 mg Tablet
500 mg PO Q6H PRN (Reason: pain)
calcium carbonate 600 mg calcium (1,500 mg) Tablet
600 mg PO PRN PRN (Reason: Indigestion)
losartan 100 mg Tablet
100 mg PO DAILY
aspirin 81 mg Tablet,Chewable
81 mg PO DAILY
cyanocobalamin (vitamin B-12) [Vitamin B-12] 1,000 mcg Tablet Extended Release
1,000 mcg PO DAILY Qty: 0 0RF
ascorbic acid (vitamin C) [Vitamin C] 500 mg Tablet
500 mg PO DAILY Qty: 0 0RF
Citrucel 500 mg Tablet
500 mg PO DAILY Qty: 0 0RF
fluticasone propionate 50 mcg/actuation [place],Suspension
2 spray INTRANASAL DAILY Qty: 0 0RF
carboxymethylcellulose sodium 1 % Drops, Liquid Gel
1 drp OPHTHALMIC (EYE) BID Qty: 0 0RF
Centrum Silver Women 8 mg iron-400 mcg-50 mcg Tablet
1 tab PO DAILY Qty: 0 0RF
Xarelto 20 MG tablet
20 mg PO QPM Qty: 0 0RF
Caltrate 600 plus D 600 mg-20 mcg (800 unit) Tablet,Chewable
1 tab PO DAILY Qty: 0 0RF
Probiotic Acidophilus
1 cap PO DAILY Qty: 0 0RF
Discharge Orders:
Discharge Patient (As Directed); Ordered 07/11/24
Ordered By: Mehnaz Khanna
Care Plan Goals
Care Plan Goals:
Problem: Readiness for enhanced knowledge related to diagnosis and treatment plan
Goal: Understand your diagnosis and treatment plan needs, including medications if applicable.
Instructions: Know your diagnosis, underlying causes and treatment plan options, including medications if applicable. Consult with your health care team to learn about your diagnosis and treatment plan, including medications if applicable.
Discharge Date and Time
Print Language: BELARUSIAN
--- NOTE | 2024-07-11 09:52 | W.PN.ANS.POP ---
Anesthesia Post Operative
- Anesthesia Post Op Note
Vital Signs Stable-See Nursing Note: Yes
Airway Patent: Yes
Adequate Pain Control: Yes
Change in Mental Status: No
Current Postoperative Nausea & Vomiting: No
Anesthesia Complications: No
General Anesthetic Recall: No
Unplanned Admission: No
Post Op Hydration Adequate: Yes
--- NOTE | 2024-07-11 11:09 | PTCARENOTE ---
Discharge instructions gone over with patient and ; all questions answered; PIV x3 removed; night monitor removed; pt dressed self; at bedside and awaiting transport for discharge home.
--- NOTE | 2024-07-14 08:01 | PN.CDI ---
CDI
- -
CDI:
Physician Documentation Request
Admit Date: 07/10/24 05:34
Dear Doctor Peyton,
Please review the following and provide your response in the progress notes.
Clinical Indicators: '2. acute on chronic heart failure with elevated filling pressures (LVEDP = 24)' is documented on the Cardiac Catheterization Report.
Please clarify if the type of CHF, if known.
Please provide further specificity regarding the most likely type and acuity of CHF you are evaluating, treating or monitoring.
Type Acuity
Systolic Acute
Diastolic Chronic
Combined Systolic/Diastolic Acute on Chronic
Other Unable to Determine
Unable to Determine
Use of terms such as suspected, likely, concern for, or probable (associated with a specific diagnosis that is being evaluated, monitored, or treated as if it exists) are acceptable and can be coded in the inpatient setting, when documented at the
time of discharge.
Thank you,
Michelle Andrew
Hotel Superintendent
Please use your independent medical judgment in providing your response.
--- NOTE | 2024-07-15 13:24 | PN.CDI ---
CDI
- -
CDI:
Physician Documentation Request
Admit Date: 07/10/24 05:34
Dear Doctor Carole,
Please review the following and provide your response in the progress notes.
Clinical Indicators: '2. acute on chronic heart failure with elevated filling pressures (LVEDP = 24)' is documented on the Cardiac Catheterization Report.
Please clarify if the type of CHF, if known.
Please provide further specificity regarding the most likely type and acuity of CHF you are evaluating, treating or monitoring.
Type Acuity
Systolic Acute
Diastolic Chronic
Combined Systolic/Diastolic Acute on Chronic
Other Unable to Determine
Unable to Determine
Use of terms such as suspected, likely, concern for, or probable (associated with a specific diagnosis that is being evaluated, monitored, or treated as if it exists) are acceptable and can be coded in the inpatient setting, when documented at the
time of discharge.
Thank you,
Michelle Andrew
Car Inspector
Please use your independent medical judgment in providing your response.
--- NOTE | 2024-07-15 15:40 | W.PN.CD ---
Today's Communication / Plan
-
NA
Impression / Plan
-
On basis of LVEDP 24 mmHg measured during TAVR procedure, patient was noted to have acute on chronic systolic heart failure. This was managed with intensive monitoring and diuresis.
Physical Exam
Vital Signs/Labs
Vital Signs
Temp Pulse Resp BP Pulse Ox
36.8 C 73 20 139/66 96
07/11/24 11:07 07/11/24 11:00 07/11/24 11:07 07/11/24 10:10 07/11/24 11:07
07/11/24 04:20
07/11/24 04:20
PT 14.6 Sec (11.4-14.6) 07/11/24 04:20
INR 1.08 07/11/24 04:20
APTT 32.3 Sec (23.4-35.0) 07/11/24 04:20
07/02/24
08:53
Qig-G-Lumuwaobzkr Pept 196
Data Reviewed
-
Date of Service: July 15, 2024
== END 2024-07-11 11:30 | disposition home or self-care (01) | DRG 266 ==
LOC: CVICU 05:34
PROVIDERS: Anesthesiology; Nurse Practitioner Acute Care; Physician Assistant Medical; Surgery Vascular Surgery; ADMITTING PHYSICIAN Thoracic Surgery (Cardiothoracic Vascular Surgery); CONSULT PHYSICIAN Internal Medicine Critical Care Medicine; FAMILY PHYSICIAN Family Medicine
PROC: 02RF38Z Replacement of Aortic Valve with Zooplastic Tissue, Percutaneous Approach (ICD-10-PCS; 2024-07-10)
PROC: B24BZZ4 Ultrasonography of Heart with Aorta, Transesophageal (ICD-10-PCS; 2024-07-10)
PROC: 04V03DZ Restriction of Abdominal Aorta with Intraluminal Device, Percutaneous Approach (ICD-10-PCS; 2024-07-10)
DX: I35.0 Nonrheumatic aortic (valve) stenosis (principal); Z00.6 Encounter for examination for normal comparison and control in clinical research program; I50.23 Acute on chronic systolic (congestive) heart failure; I71.43 Infrarenal abdominal aortic aneurysm, without rupture; I11.0 Hypertensive heart disease with heart failure; I73.9 Peripheral vascular disease, unspecified; M19.90 Unspecified osteoarthritis, unspecified site; K58.9 Irritable bowel syndrome, unspecified; E87.6 Hypokalemia; R73.9 Hyperglycemia, unspecified; G47.33 Obstructive sleep apnea (adult) (pediatric); I77.1 Stricture of artery; I25.10 Atherosclerotic heart disease of native coronary artery without angina pectoris; R91.1 Solitary pulmonary nodule; I45.4 Nonspecific intraventricular block; I70.8 Atherosclerosis of other arteries; E78.5 Hyperlipidemia, unspecified; I48.0 Paroxysmal atrial fibrillation; Z79.01 Long term (current) use of anticoagulants; Z79.899 Other long term (current) drug therapy; Z82.49 Family history of ischemic heart disease and other diseases of the circulatory system; Z85.820 Personal history of malignant melanoma of skin; Z86.19 Personal history of other infectious and parasitic diseases; Z86.718 Personal history of other venous thrombosis and embolism; Z87.891 Personal history of nicotine dependence
CPT/HCPCS: 11765; 33361; 34705; 34713; 36415; 71045; 71046; 80048; 80053; 81003; 82248; 83036; 83880; 85025; 85027; 85347; 85610; 85730; 86850; 86900; 86901; 87070; 93005; 93306; 93312; 93320; 93325; C1760; C1769; C1773; C1892; C1894; C2628; Q9967

== ENCOUNTER → 2024-08-11 11:23 | Outpatient (REF) | payer MEDICARE, OTHER, SELFPAY | LOC: RCS 11:23 | PROVIDERS: ATTENDING PHYSICIAN Internal Medicine Cardiovascular Disease; FAMILY PHYSICIAN Family Medicine | DX: Z95.2 Presence of prosthetic heart valve (principal) | CPT/HCPCS: 93306 ==

== ENCOUNTER → 2024-08-12 09:16 | Outpatient (REF) | payer MEDICARE, OTHER, SELFPAY | LOC: RAD 09:16 | PROVIDERS: ATTENDING PHYSICIAN Registered Nurse; FAMILY PHYSICIAN Family Medicine | DX: I71.9 Aortic aneurysm of unspecified site, without rupture (principal) | CPT/HCPCS: 74174; Q9967 ==

== ENCOUNTER 2024-09-08 10:39 | Outpatient (RCR) | payer MEDICARE, OTHER, SELFPAY | END 2024-09-08 23:59 | disposition home or self-care (01) | LOC: CRHB 10:39 | PROVIDERS: ATTENDING PHYSICIAN Internal Medicine Cardiovascular Disease; FAMILY PHYSICIAN Family Medicine | DX: Z95.4 Presence of other heart-valve replacement (principal) | CPT/HCPCS: G0422; G0423 ==

== ENCOUNTER 2024-10-08 10:33 | Outpatient (RCR) | payer MEDICARE, OTHER, SELFPAY ==
[2024-09-09 12:54] LABS: HDL Cholesterol 80 mg/dl; LDL Cholesterol, Calculated 121 mg/dl; Total Cholesterol 225 mg/dl (50-199); Triglyceride 122 mg/dl (10-149); Very Low Density Lipoprotein 24 mg/dl (0-30)
== END 2024-10-08 23:59 | disposition home or self-care (01) ==
LOC: CRHB 10:33
PROVIDERS: ATTENDING PHYSICIAN Internal Medicine Cardiovascular Disease; FAMILY PHYSICIAN Family Medicine
DX: Z95.4 Presence of other heart-valve replacement (principal)
CPT/HCPCS: 36415; 80061; G0422; G0423

== ENCOUNTER → 2024-10-21 10:49 | Outpatient (REF) | payer MEDICARE, OTHER, SELFPAY | LOC: HWRAD 10:49 | PROVIDERS: ATTENDING PHYSICIAN Obstetrics & Gynecology; FAMILY PHYSICIAN Family Medicine | DX: Z78.0 Asymptomatic menopausal state (principal) | CPT/HCPCS: 77080 ==

== ENCOUNTER 2024-11-07 09:45 | Outpatient (RCR) | payer MEDICARE, OTHER, SELFPAY | END 2024-11-07 23:59 | disposition home or self-care (01) | LOC: CRHB 09:45 | PROVIDERS: ATTENDING PHYSICIAN Internal Medicine Cardiovascular Disease; FAMILY PHYSICIAN Family Medicine | DX: Z95.4 Presence of other heart-valve replacement (principal) | CPT/HCPCS: G0422; G0423 ==

== ENCOUNTER 2024-11-17 09:15 | Outpatient (RCR) | payer MEDICARE, OTHER, SELFPAY ==
[2024-11-13 11:34] LABS: HDL Cholesterol 70 mg/dl; LDL Cholesterol, Calculated 121 mg/dl; Total Cholesterol 213 mg/dl (50-199); Triglyceride 114 mg/dl (10-149); Very Low Density Lipoprotein 22 mg/dl (0-30)
== END 2024-11-18 13:22 | disposition home or self-care (01) ==
LOC: CRHB 09:15
PROVIDERS: ATTENDING PHYSICIAN Internal Medicine Cardiovascular Disease; FAMILY PHYSICIAN Family Medicine
DX: I25.10 Atherosclerotic heart disease of native coronary artery without angina pectoris (principal); Z95.4 Presence of other heart-valve replacement
CPT/HCPCS: 36415; 80061; G0422; G0423

== ENCOUNTER → 2024-12-24 13:44 | Outpatient (REF) | payer MEDICARE, OTHER, SELFPAY | LOC: RCS 13:44 | PROVIDERS: ATTENDING PHYSICIAN Internal Medicine Cardiovascular Disease; FAMILY PHYSICIAN Family Medicine | DX: I25.10 Atherosclerotic heart disease of native coronary artery without angina pectoris (principal) | CPT/HCPCS: 93017; 93350 ==

== ENCOUNTER → 2025-02-23 06:49 | Outpatient (REF) | payer MEDICARE, OTHER, SELFPAY | LOC: RAD 06:49 | PROVIDERS: ATTENDING PHYSICIAN Surgery Vascular Surgery; FAMILY PHYSICIAN Family Medicine | DX: I77.1 Stricture of artery (principal); I71.9 Aortic aneurysm of unspecified site, without rupture | CPT/HCPCS: 76770; 93923 ==